=== PATIENT | male | born 1970 | race Caucasian/White ===

== ENCOUNTER 2019-11-10 16:28 | Emergency (ER) | payer OTHER, SELFPAY ==
--- NOTE | ~2019-11-10 | XR_ITS ---
EXAMINATION: XR chest 2V DATE: 11/10/2019 20:46 INDICATION: Fever TECHNIQUE: PA and lateral views of the chest were obtained. COMPARISON: None FINDINGS: The lungs are clear with no focal airspace opacities, pulmonary edema, pleural effusion or pneumothor ax. The cardiomediastinal silhouette is normal. Visualized bones and soft tissues are unremarkable. IMPRESSION: 1. No acute cardiopulmonary disease. Reviewed, dictated and finalized at location A. [facility]
[2019-11-10 17:36] VITALS: BP 109/73; PULSE 75; RESP 13; TEMP 37.2; O2SAT 96
--- NOTE | 2019-11-10 18:27 | ED.GENADULT ---
HPI - General Adult General Chief complaint: Nausea/Vomiting/Diarrhea Stated complaint: fever,nausea, aches and pains Time Seen by Provider: 11/10/19 18:05 Source: patient Mode of arrival: ambulatory Limitations: no limitations History of Present Illness HPI narrative: Jf is a 49-year-old male patient. He presents ambulatory to the emergency room. He states that he has had fever nausea and body aches. This started at about 6:00 a.m. today. He has had 2 episodes of emesis. He had a slight headache earlier but none now. His fever was 101.7? F had known. Three or 4 hours later it came down spontaneously to 100.1. He had not taken any Tylenol or ibuprofen. Mother time he presented to the emergency room, his temperature was 98.9? F. He has no abdominal pain. He has no chest pain. He had some muscle aches on the left side of the body. There is no history of diarrhea. He has not traveled anywhere outside the country. Onset (ago): hour(s) ( Since 6:00 a.m..) Radiation: other ( See HPI narrative) Severity: moderate Quality: aching Pain Consistency: intermittent Relieving factors: none Exacerbating factors: none Associated symptoms: other ( see HPI narrative) Treatments prior to arrival: other ( see HPI narrative) Related Data Home Medications Medication Instructions Recorded Confirmed omeprazole magnesium [Acid Business Continuity Manager 20 mg PO DAILY 11/10/19 11/10/19 (omeprazole)] Allergies Allergy/AdvReac Type Severity Reaction Status Date / Time No Known Allergies Allergy Verified 11/10/19 17:35 Review of Systems Review of Systems: All systems reviewed & are unremarkable except as noted in HPI and below Constitutional: Constitutional: Reports as per HPI, Reports no additional constitutional complaints, Denies chills and Reports fever(s) Eyes: Eyes: Reports as per HPI, Reports no additional eye complaints and Denies change in vision ENT: Reports system reviewed and no additional complaints, except as documented, Denies dysphagia, Denies vertigo, Denies dizziness and Denies sore throat Cardiovascular: Cardiovascular: Reports as per HPI, Reports no additional cardiovascular complaints, Denies chest pain, Denies rapid heart rate and Denies radiating jaw, neck or arm pain Respiratory: Respiratory: Reports as per HPI, Denies cough and Denies dyspnea Gastrointestinal: Gastrointestinal: Reports no additional gastrointestinal complaints, Denies diarrhea, Reports nausea and Reports vomiting Genitourinary: Genitourinary: Reports no additional male genitourinary complaints and Reports dysuria Musculoskeletal: Musculoskeletal: Reports as per HPI and Reports muscle cramps Integumentary/Breasts: Skin/Breast: Reports rash Comments: Jf has a chronic rash on the extremities for more than 1 year. He has seen a configuration management specialist in [place]. He was told that this is eczema, possibly early psoriasis. Neurologic: Reports system reviewed and no additional complaints, except as documented, Denies vertigo, Denies dizziness, Denies syncope, Denies headache(s), Denies focal weakness and Denies weakness Psychiatric: Psychiatric: Reports no additional psychiatric complaints, Denies anxiety and Denies depression Endocrine: Endocrine: Reports no additional endocrine complaints, Denies polydipsia and Denies polyuria Hematologic/Lymphatic: Hematologic/Lymphatic: Reports no additional hematologic/lymphatic complaints, Denies easy bleeding and Denies easy bruising Allergic/Immunologic: Allergic/Immunologic: Reports no additional allergic/immunologic complaints, Denies lip swelling and Denies tongue swelling [facility] Past Medical History Medical History (Updated 11/10/19 @ 21:13 by Clifford Anders MD) Chronic pruritic rash in adult Surgical History Surgical History (Updated 11/10/19 @ 18:33 by Clifford Anders MD) History of tonsillectomy History of vasectomy Family History Family History (Updated 11/10/19 @ 18:33 by Clifford Hancock
[2019-11-10 18:43] LABS: Basophils Absolute Auto 0.08 K/mm3 (0.00-0.10); Basophils Percent Auto 0.5 % (0.0-1.0); Eosinophils Absolute Auto 0.02 K/mm3 (0.02-0.50); Eosinophils Percent Auto 0.1 % (1.0-6.0); Hematocrit 43.6 % (40.0-54.0); Hemoglobin 14.9 g/dL (14.0-18.0); Immature Granulocyte Absolute 0.06 K/mm3 (0.00-0.00); Immature Granulocyte Percent A 0.4 % (0.0-0.0); Lymphocytes Absolute Auto 1.87 K/mm3 (1.10-4.50); Lymphocytes Percent Auto 12.6 % (18.0-42.0); Mean Corpuscular HGB Conc 34.2 g/dL (32.0-36.0); Mean Corpuscular Volume 87.9 fL (78.0-102.0); Mean Platelet Volume 9.5 fl (8.7-11.0); Monocytes Absolute Auto 0.69 K/mm3 (0.10-0.90); Monocytes Percent Auto 4.6 % (2.0-11.0); Neutrophils Absolute Auto 12.2 K/mm3 (1.7-7.2); Neutrophils Percent Auto 81.8 % (50.0-70.0); Platelet Count Result 227 K/mm3 (150-420); Red Blood Count 4.96 M/mm3 (4.70-6.10); Red Cell Distribution Width 12.3 % (11.6-14.4); White Blood Count 14.9 K/mm3 (4.8-10.8)
[2019-11-10 18:45] LABS: Add Urine Microscopic? NO; Appearance Urine Clear (Clear); Bilirubin Urine Negative (Negative); Blood Urine Negative (Negative); Color Urine Yellow (Yellow); Glucose Urine UA Negative (Negative); Ketones Urine Negative (Negative); Leukocyte Esterase Ur Negative LEU/UL (Negative); Nitrate Urine Negative (Negative); Protein Urine Negative (Negative); Specific Grav Ur 1.015 (1.010-1.020); Urobilinogen Urine 0.2 mg/dL (0.2-1.0)
[2019-11-10 19:01] LABS: Alanine Aminotransferase 36 U/L (16-63); Albumin Level 4.3 g/dL (3.4-5.0); Alkaline Phosphatase 79 U/L (46-116); Anion Gap 12.2 mmol/L (7-16); Aspartate Amino Transferase 30 U/L (15-37); Bilirubin,Total 0.6 mg/dL (0.00-1.00); Blood Urea Nitrogen 16 mg/dL (7-18); Calcium 8.9 mg/dL (8.5-10.1); Carbon Dioxide 27 mmol/L (21-32); Chloride 104 mmol/L (98-108); Estimated CRCL calculation 51 ml/min; Estimated Glomerular Filt Rate 56; Glucose 95 mg/dL (70-99); Osmolality Calculated 289 mOsm/kg (285-295); Potassium 4.2 mmol/L (3.5-5.1); Sodium 139 mmol/L (136-145); Total Protein 8.1 g/dL (6.4-8.2)
[2019-11-10 19:02] LABS: Influenza Control Valid (Valid)
[2019-11-10 21:20] VITALS: BP 130/78; PULSE 80; RESP 18; TEMP 36.6; O2SAT 99
[2019-11-10] MEDS: CEPHALEXIN 500 MG CAPSULE PO (21:20)
== END 2019-11-10 21:23 | disposition home or self-care (01) ==
PROVIDERS: Emergency Provider Surgery; PCP Family Medicine
DX: R50.9 Fever, unspecified (principal); D72.829 Elevated white blood cell count, unspecified
CPT/HCPCS: 71046; 80053; 81003; 85025; 87081; 87804; 87880; 99282; 99283; A9270

== ENCOUNTER 2023-03-09 10:27 | Outpatient (CLI) | payer OTHER, SELFPAY ==
--- NOTE | ~2023-03-09 | CT_ITS ---
CT Scan of the Chest without Contrast: Clinical Indication: Lung cancer screening, smoking history Technique: Contiguous sections were acquired throughout the chest without intravenous contrast. Dose reduction technique was used on this scan by utilizing automated exposure control and iterative recon struction technique. The dose-length product (DLP) was 78.37 mGy-cm. Findings: There is no evidence of any significant mediastinal, hilar or axillary lymphadenopathy. The mediastin al soft tissues appear normal. There is no evidence of pleural or pericardial effusion. The lungs are clear. No pulmonary nodules or infiltrates are noted. Images through the upper abdomen reveal no abnormalities. Impression: Lung RADS 1: Negative. 12 month follow-up screening CT advised. Reviewed, dictated and finalized at location . Impression: Lung RADS 1: Negative. 12 month follow-up screening CT advised.
== END 2023-03-09 10:28 | disposition home or self-care (01) ==
LOC: CHSIMG 10:30
PROVIDERS: PCP Physician Assistant; Visit Provider Physician Assistant
DX: Z12.2 Encounter for screening for malignant neoplasm of respiratory organs (principal); Z87.891 Personal history of nicotine dependence
CPT/HCPCS: 71271

== ENCOUNTER 2023-06-10 12:56 | Outpatient (CLI) | payer OTHER, SELFPAY ==
--- NOTE | ~2023-06-10 | XR_ITS ---
EXAMINATION: XR hand LT min 3V INDICATION: Left hand pain TECHNIQUE: Three views of the left hand are obtained. COMPARISON: None available FINDINGS: No fracture, dislocation, or subluxation. The bones, soft tissues, and joint spaces are nor mal. IMPRESSION: 1. No acute osseous abnormality. Reviewed, dictated and finalized at location L.
== END 2023-06-10 12:57 | disposition home or self-care (01) ==
LOC: CHSIMG 12:58
PROVIDERS: PCP Family Medicine; Visit Provider Physician Assistant
DX: M79.642 Pain in left hand (principal)
CPT/HCPCS: 73130

== ENCOUNTER 2024-04-16 17:37 | Emergency (ER) | payer OTHER, SELFPAY ==
--- NOTE | ~2024-04-16 | XR_ITS ---
Portable chest x-ray Comparison: 11/10/2019 Clinical History: Cough, fever Findings: Lungs are clear, without focal consolidation or pleural effusion. Cardiomediastinal silho uette is stable. Bones and soft tissues are unremarkable. Impression: Normal chest. Reviewed, dictated and finalized at [facility]. Impression: Normal chest.
[2024-04-16 17:39] VITALS: BP 127/86; PULSE 92; RESP 20; TEMP 37.3; O2SAT 94
[2024-04-16 17:53] VITALS: O2SAT 94
[2024-04-16 18:22] LABS: Basophils Absolute Auto 0.04 K/mm3 (0.00-0.10); Eosinophils Absolute Auto 0.02 K/mm3 (0.02-0.50); Eosinophils Percent Auto 0.5 % (1.0-6.0); Hematocrit 39.8 % (40.0-54.0); Hemoglobin 13.6 g/dL (14.0-18.0); Immature Granulocyte Absolute 0.01 K/mm3 (0.00-0.00); Immature Granulocyte Percent A 0.2 % (0.0-0.0); Lymphocytes Absolute Auto 0.35 K/mm3 (1.10-4.50); Lymphocytes Percent Auto 8.5 % (18.0-42.0); Mean Corpuscular HGB Conc 34.2 g/dL (32-36); Mean Corpuscular Hemoglobin 29.6 pg (27.0-31.0); Mean Corpuscular Volume 86.7 fL (78.0-102.0); Mean Platelet Volume 9.8 fl (8.7-11.0); Monocytes Absolute Auto 0.62 K/mm3 (0.10-0.90); Neutrophils Absolute Auto 3.08 K/mm3 (1.70-7.20); Neutrophils Percent Auto 74.8 % (50.0-70.0); Platelet Count Result 152 K/mm3 (150-420); Red Blood Count 4.59 M/mm3 (4.70-6.10); Red Cell Distribution Width 12.6 % (11.6-14.4); White Blood Count 4.1 K/mm3 (4.8-10.8)
[2024-04-16 18:31] LABS: Alanine Aminotransferase 39 U/L (16-63); Albumin Level 3.7 g/dL (3.4-5.0); Alkaline Phosphatase 76 U/L (46-116); Anion Gap 12 mmol/L (4-12); Aspartate Amino Transferase 32 U/L (15-37); Bilirubin,Total 0.5 mg/dL (0.00-1.00); Blood Urea Nitrogen 16 mg/dL (7-18); Calcium 8.6 mg/dL (8.5-10.1); Carbon Dioxide 24 mmol/L (21-32); Chloride 101 mmol/L (98-108); Estimated CRCL calculation 42 ml/min; Estimated Glomerular Filt Rate 46; Glucose 98 mg/dL (70-99); Osmolality Calculated 285 mOsm/kg (285-295); Potassium 3.6 mmol/L (3.5-5.1); Sodium 137 mmol/L (136-145); Total Protein 6.9 g/dL (6.4-8.2)
--- NOTE | 2024-04-16 18:32 | ED.GENADULT ---
HPI - General Adult General Chief complaint: Upper Respiratory Infection Stated complaint: fever Time Seen by Provider: 04/16/24 17:39 History of Present Illness HPI narrative: Jf is a 54M that presented to the ED not feeling well. Yesterday at night he started to have body cramps, that progressed to fatigue, fevers, sneezing, sinus pain/drainage and a cough. No chest pain or dyspnea. Related Data Home Medications Medication Instructions Recorded Confirmed omeprazole magnesium 20 mg 20 mg PO DAILY 11/10/19 04/16/24 capsule,delayed release (Acid Imaging Scheduler (omeprazole)) famotidine 20 mg tablet 20 mg PO BID 04/16/24 04/16/24 fluocinonide 0.05 % topical 1 applic topical DAILY 04/16/24 04/16/24 ointment Allergies Allergy/AdvReac Type Severity Reaction Status Date / Time No Known Allergies Allergy Verified 04/16/24 17:42 Review of Systems Review of Systems: All systems reviewed & are unremarkable except as noted in HPI and below PMFSH Past Medical History Medical History Chronic pruritic rash in adult Surgical History Surgical History History of tonsillectomy History of vasectomy Family History Family History Father No problems noted. Mother No problems noted. Social History Social History Smoking status: Never smoker Alcohol use details: does not drink alcohol Substance use: never Living arrangements: with family Exam Const: General: cooperative, healthy appearing, comfortable, no acute distress, well developed, alert, awake and Physically active Orientation/consciousness: oriented to person, oriented to place and oriented to time Other: -Was warm to the touch HENMT: Head: normal to inspection, normocephalic and atraumatic Ears: hearing grossly normal bilaterally and external ears normal Face/Nose/Sinus: Normal external nose present Other: erythematous nasal turbinates Eyes: General: appearance normal, both eyes and all related structures Periorbital: periorbital findings normal Sclera: sclerae normal Pupils: Equal, round and reactive pupils present Neck: Neck: normal visual inspection Chest: Chest palpation & inspection: normal inspection of the chest Resp: Effort & Inspection: normal respiratory effort, able to speak in complete sentences and no respiratory distress Auscultation: clear to auscultation bilaterally Cardio: Jugular venous distension: no JVD Rate: regular rate Rhythm: regular rhythm GI: Inspection: normal to inspection GI Palp: Yes Soft to palpation Auscultation: normal bowel sounds Skin: General skin exam: normal color and no rashes or lesions noted Neuro: General: oriented to person, oriented to place and oriented to time Cranial nerves: Yes Equal, round and reactive pupils present Extrem: General: normal to inspection Course Course Emergency Course: Ordered labs, CXR and viral testing Portable chest x-ray Comparison: 11/10/2019 Clinical History: Cough, fever Findings: Lungs are clear, without focal consolidation or pleural effusion. Cardiomediastinal silhouette is stable. Bones and soft tissues are unremarkable. Impression: Normal chest. Labs showed mild leukopenia and chemistries were normal +for covid Vital Signs Vital signs: Vital Signs Temperature 99.1 F 04/16/24 17:39 Pulse Rate 92 04/16/24 17:39 Respiratory Rate 20 04/16/24 17:39 Blood Pressure 127/86 04/16/24 17:39 Pulse Oximetry 94 04/16/24 17:39 Oxygen Delivery Room Air 04/16/24 17:39 Temperature 99.1 F 04/16/24 17:39 Pulse Rate 92 04/16/24 17:39 Respiratory Rate 04/16/24 17:39 Blood Pressure 127/86 04/16/24 17:39 Pulse Oximetry 94 04/16/24 17:53 Oxygen Delivery Room Air 04/16/24
[2024-04-16 18:45] LABS: Strep Group A RT-PCR NOT DETECTED (Negative)
[2024-04-16 18:54] LABS: Influenza A QL RT-PCR Negative (Negative); Influenza B QL RT-PCR Negative (Negative); RSV RNA, RT-PCR Negative (Negative); SARS-CoV-2 RNA PCR Positive (Negative)
--- NOTE | 2024-04-16 18:54 | PC.NURSE ---
assumed care. report received from Matteo [place].
[2024-04-16 19:09] VITALS: BP 102/68; PULSE 82; RESP 18; TEMP 37.9; O2SAT 95
== END 2024-04-16 19:09 | disposition home or self-care (01) ==
PROVIDERS: Emergency Provider Family Medicine; PCP Physician Assistant
DX: U07.1 COVID-19 (principal); Z79.899 Other long term (current) drug therapy
CPT/HCPCS: 36415; 71045; 80053; 85025; 87637; 87651; 99283

== ENCOUNTER 2024-07-27 13:06 | Outpatient (CLI) | payer OTHER, SELFPAY ==
--- NOTE | ~2024-07-27 | XR_ITS ---
3 VIEWS LUMBAR SPINE Ordering provider: Jun Mcneil, VAMSI History: . low back pain,[id number] NKI . Comparison: None. FINDINGS: VERTEBRAL BODIES: No visible fracture or subluxation. DISK SPACES: Normal. SOFT TISSUES: Normal. IMPRESSION: No acute osseous abnormality lumbar spine. Reviewed, dictated and finalized at location A.
== END 2024-07-27 13:07 | disposition home or self-care (01) ==
LOC: CHSIMG 13:08
PROVIDERS: PCP Family Medicine; Visit Provider Physician Assistant
DX: M54.50 Low back pain, unspecified (principal)
CPT/HCPCS: 72100